=== PATIENT | female | born 1980 | race Caucasian/White ===

== ENCOUNTER 2018-11-02 11:37 | Emergency (ER) | payer SELFPAY ==
[~2018-11-02] VITALS: Ht 170.2 cm; Wt 119.5 kg
[2018-11-02 12:01] VITALS: Ht 170.2 cm; Wt 119.5 kg
[2018-11-02 13:08] LABS: BASOPHILS 0.2 % (0-2); HEMATOCRIT 50.2 % (36.0-48.0); HEMOGLOBIN 17.8 g/dL (12-16); IMMATURE GRANULOCYTES 0.3 % (0-5); LYMPHOCYTES 25.1 % (15-50); MCH 29.7 pg (26.0-34.0); MCHC 35.5 g/dL (31.0-37.0); MCV 83.8 fL (80.0-100.0); MEAN PLATELET VOLUME 8.8 fL (7.4-10.4); MONOCYTES 6.6 % (2-11); NEUTROPHILS 65.8 % (40-80); PLATELET COUNT 280 10x3/uL (130-400); RBC 5.99 10x6/uL (4.00-5.40); RDW 13.4 % (11.5-14.5); WBC 12.7 10x3/uL (4.8-10.8)
[2018-11-02 13:14] LABS: ALBUMIN 3.7 g/dL (3.4-5.0); ALKALINE PHOSPHATASE 48 U/L (46-116); ALT (SGPT) 37 U/L (10-68); BILIRUBIN - TOTAL 0.55 mg/dL (0.2-1.3); CALC OSMOLALITY 274 mosm/kg (275-300); CALCIUM 8.9 mg/dL (8.5-10.1); CARBON DIOXIDE 22.6 mmol/L (21.0-32.0); CHLORIDE - SERUM 103 mmol/L (98-107); GLUCOSE 132 mg/dL (74-106); POTASSIUM - SERUM 3.8 mmol/L (3.5-5.1); PROTEIN - SERUM 7.6 g/dL (6.4-8.2); SODIUM 137 mmol/L (136-145); UREA NITROGEN 10 mg/dL (7-18); eGFR NON AFRICAN AMERICAN 65 mL/min (90-120)
[2018-11-02 13:18] LABS: HCG URINE NEGATIVE (NEGATIVE)
[2018-11-02 13:18] LABS: AMYLASE - SERUM 25 U/L (25-115); LIPASE 57 U/L (73-393)
[2018-11-02 13:24] LABS: TROPONIN-I < 0.017 ng/mL (0.000-0.060)
[2018-11-02 13:32] LABS: APPEARANCE CLOUDY (CLEAR); BILIRUBIN NEGATIVE (NEGATIVE); COLOR YELLOW (YELLOW); GLUCOSE NEGATIVE (NEGATIVE); KETONE NEGATIVE (NEGATIVE); NITRITE POSITIVE (NEGATIVE); PROTEIN TRACE mg/dL (NEGATIVE); SPECIFIC GRAVITY 1.025 (1.005-1.020)
[2018-11-02 13:33] LABS: RED CELLS - URINE 0-5 /hpf (0-5)
[2018-11-02 13:34] LABS: BACTERIA MODERATE /hpf (NONE SEEN); MUCUS <1+ /lpf (NONE SEEN)
[2018-11-02] MEDS ORDERED: ZOFRAN8 MG PO (14:53)
[2018-11-02 15:30] VITALS: BP 154/96
[2018-11-08 19:07] LABS: CHLAMYDIA TRACHOMATIS, NAA Negative (Negative)
== END 2018-11-02 15:30 | disposition home or self-care (01) ==
LOC: D.ER 11:37
PROVIDERS: Family Medicine
DX: A59.9 Trichomoniasis, unspecified (principal); R11.2 Nausea with vomiting, unspecified; N39.0 Urinary tract infection, site not specified

== ENCOUNTER 2019-03-22 10:06 | Emergency (ER) | payer OTHER, MEDICAID ==
[~2019-03-22] VITALS: Ht 170.2 cm; Wt 120.5 kg
[~2019-03-22 10:06] MED LIST: ZOFRAN8 MG PO
[2019-03-22 10:12] VITALS: Ht 170.2 cm; Wt 120.5 kg
[2019-03-22 10:41] LABS: BASOPHILS 0.6 % (0-2); EOSINOPHILS 3.5 % (0-7); HEMATOCRIT 46.4 % (36.0-48.0); HEMOGLOBIN 15.9 g/dL (12-16); IMMATURE GRANULOCYTES 0.1 % (0-5); LYMPHOCYTES 28.3 % (15-50); MCHC 34.3 g/dL (31.0-37.0); MCV 87.5 fL (80.0-100.0); MEAN PLATELET VOLUME 8.4 fL (7.4-10.4); MONOCYTES 6.9 % (2-11); NEUTROPHILS 60.6 % (40-80); PLATELET COUNT 314 10x3/uL (130-400); RDW 13.6 % (11.5-14.5); WBC 11.3 10x3/uL (4.8-10.8)
[2019-03-22 10:56] LABS: ALBUMIN 3.7 g/dL (3.4-5.0); ALKALINE PHOSPHATASE 50 U/L (46-116); ALT (SGPT) 35 U/L (10-68); BILIRUBIN - TOTAL 0.26 mg/dL (0.2-1.3); CALC OSMOLALITY 279 mosm/kg (275-300); CALCIUM 8.8 mg/dL (8.5-10.1); CARBON DIOXIDE 27.3 mmol/L (21.0-32.0); CHLORIDE - SERUM 104 mmol/L (98-107); GLUCOSE 90 mg/dL (74-106); PROTEIN - SERUM 7.6 g/dL (6.4-8.2); SODIUM 141 mmol/L (136-145); UREA NITROGEN 11 mg/dL (7-18); eGFR NON AFRICAN AMERICAN 65 mL/min (90-120)
[2019-03-22 11:03] LABS: TROPONIN-I < 0.017 ng/mL (0.000-0.060)
[2019-03-22] MEDS ORDERED: LISINOPRIL-HCT1 EAC7 PO (11:28)
[2019-03-22] MEDS ORDERED: LISINOPRIL-HCT1 EAC4 PO (11:34)
[2019-03-22 11:45] VITALS: BP 139/95
== END 2019-05-02 08:32 | disposition home or self-care (01) ==
LOC: D.ER 10:06
PROVIDERS: Family Medicine
DX: I10 Essential (primary) hypertension (principal); Z72.0 Tobacco use

== ENCOUNTER 2019-03-29 15:04 | Emergency (ER) | payer OTHER, MEDICAID ==
[~2019-03-29] VITALS: Ht 170.2 cm; Wt 120.5 kg
[~2019-03-29 15:04] MED LIST changes: +LISINOPRIL-HCT1 EAC4 PO; +LISINOPRIL-HCT1 EAC7 PO
[2019-03-29 15:11] VITALS: Ht 170.2 cm; Wt 120.5 kg
[2019-03-29 15:42] LABS: BASOPHILS 0.6 % (0-2); EOSINOPHILS 3.8 % (0-7); HEMOGLOBIN 14.6 g/dL (12-16); IMMATURE GRANULOCYTES 0.2 % (0-5); LYMPHOCYTES 38.4 % (15-50); MCH 30.1 pg (26.0-34.0); MCHC 34.8 g/dL (31.0-37.0); MCV 86.6 fL (80.0-100.0); MEAN PLATELET VOLUME 8.6 fL (7.4-10.4); MONOCYTES 5.6 % (2-11); NEUTROPHILS 51.4 % (40-80); PLATELET COUNT 297 10x3/uL (130-400); RBC 4.85 10x6/uL (4.00-5.40); RDW 13.2 % (11.5-14.5)
[2019-03-29 16:10] LABS: ALBUMIN 3.4 g/dL (3.4-5.0); ALKALINE PHOSPHATASE 51 U/L (46-116); ALT (SGPT) 36 U/L (10-68); BILIRUBIN - TOTAL 0.23 mg/dL (0.2-1.3); CALC OSMOLALITY 278 mosm/kg (275-300); CALCIUM 8.7 mg/dL (8.5-10.1); CARBON DIOXIDE 31.2 mmol/L (21.0-32.0); CHLORIDE - SERUM 101 mmol/L (98-107); CREATININE - SERUM 0.8 mg/dL (0.6-1.3); GLUCOSE 114 mg/dL (74-106); POTASSIUM - SERUM 3.6 mmol/L (3.5-5.1); PROTEIN - SERUM 6.8 g/dL (6.4-8.2); SODIUM 139 mmol/L (136-145); UREA NITROGEN 12 mg/dL (7-18); eGFR NON AFRICAN AMERICAN 84 mL/min (90-120)
[2019-03-29 17:48] LABS: APPEARANCE CLEAR (CLEAR); BILIRUBIN NEGATIVE (NEGATIVE); COLOR YELLOW (YELLOW); GLUCOSE NEGATIVE (NEGATIVE); KETONE NEGATIVE (NEGATIVE); NITRITE NEGATIVE (NEGATIVE); PROTEIN NEGATIVE (NEGATIVE); SPECIFIC GRAVITY 1.025 (1.005-1.020); UROBILINOGEN NORMAL (NORMAL)
[2019-03-29 18:44] VITALS: BP 153/101
== END 2019-03-29 18:40 | disposition home or self-care (01) ==
LOC: D.ER 15:04
PROVIDERS: Family Medicine
DX: I10 Essential (primary) hypertension (principal); E86.0 Dehydration

== ENCOUNTER 2019-07-03 11:31 | Emergency (ER) | payer MEDICAID ==
[~2019-07-03] VITALS: Ht 170.2 cm; Wt 118.2 kg
[2019-07-03 12:02] VITALS: BP 147/96; Ht 170.2 cm; Wt 118.2 kg
[2019-07-03] MEDS ORDERED: AUGMENTIN 875-11 TAB PO (12:03)
== END 2019-07-03 14:45 | disposition left against medical advice (07) ==
LOC: D.ER 11:31
DX: N61.0 Mastitis without abscess (principal)

== ENCOUNTER 2019-11-10 05:22 | Day surgery (SDC) | payer MEDICAID ==
[~2019-11-10] VITALS: Ht 170.2 cm; Wt 120.0 kg
--- NOTE | ~2019-11-10 | OP ---
PATIENT NAME: MAYDA MANCINI MEDICAL RECORD: [id number] :76 LOCATION: D.2229 ADMISSION DATE: SURGEON: LUIS ANTONIO LO MD DATE OF OPERATION: 11/10/2019 PREOPERATIVE DIAGNOSES: 1. Recurrent left breast abscesses. 2. Morbid obesity with a BMI of 42. 3. Tobacco dependence syndrome. POSTOPERATIVE DIAGNOSES: 1. Recurrent left breast abscesses. 2. Morbid obesity with a BMI of 42. 3. Tobacco dependence syndrome. PROCEDURE: Left simple mastectomy. SURGEON: Luis Antonio Lo MD REPORT OF PROCEDURE: The patient's left chest was prepped and draped in sterile fashion. An ovoid incision was made around the nipple areolar complex. Electrocautery was used to dissect through the subcutaneous tissues. We came around the entire anterior aspect of the breast extending it superiorly towards the clavicle, medially towards the sternum, inferiorly towards the rectus musculature and laterally towards the axilla. Once we had this done, then we took the breast tissue off of the pectoral muscle. Once the pec was completely excised, it was sent off for permanent specimen. We did a careful inspection to look for any bleeding sources and any of these were treated with either ties or electrocautery. At the conclusion of the case, I did not see any evidence of any surgical bleeding. The wound bed was irrigated out with sterile water. A total of two 10 flat IVONE drains were inserted through the left lateral chest and laid over the pectoral muscle. The subcutaneous tissues were all reapproximated with interrupted 3-0 Vicryls and the skin was closed with antonella. The drains were sutured into place with 2-0 nylons. COMPLICATIONS: None. CONDITION: Stable. ANESTHESIA: General endotracheal. BLOOD LOSS: 150 mL. TRANSINT:[id number] Voice Confirmation ID: [id number] DOCUMENT ID: [id number] LUIS ANTONIO LO MD CC: [id number] DICTATION DATE: 11/10/19925 INSURANCE ADVISOR: 11/10/19 [address] [facility] [address] [place] [address]
[~2019-11-10 05:22] MED LIST changes: +AUGMENTIN 875-11 TAB PO
[2019-11-10 05:59] LABS: HEMATOCRIT 45.2 % (36.0-48.0); HEMOGLOBIN 15.3 g/dL (12-16); MCH 29.3 pg (26.0-34.0); MCHC 33.8 g/dL (31.0-37.0); MCV 86.6 fL (80.0-100.0); MEAN PLATELET VOLUME 8.5 fL (7.4-10.4); RBC 5.22 10x6/uL (4.00-5.40); RDW 13.3 % (11.5-14.5); WBC 9.2 10x3/uL (4.8-10.8)
[2019-11-10 06:13] LABS: HCG SERUM NEGATIVE (NEGATIVE)
[2019-11-10 06:20] VITALS: BP 153/102; BMI 42.7
[2019-11-10 06:34] LABS: HCG URINE NEGATIVE (NEGATIVE)
[2019-11-10 10:32] VITALS: BP 137/86
--- NOTE | 2019-11-10 10:51 | NUR ---
PT BROUGHT TO FLOOR VIA STRECHER FROM RECOVERY. PT VITALS ARE STABLE AT THIS TIME. NO S/S OF ANY PAIN OR DISTRESS. BED LOW CALL LIGHT WITHIN REACH. WILL CONTINUE TO MONITOR.
[2019-11-10 12:00] VITALS: BP 121/77
[2019-11-10 12:17] VITALS: BP 147/82
[2019-11-10 16:00] VITALS: BP 137/86
--- NOTE | 2019-11-10 18:56 | NUR ---
PT IVONE DRAIN 1-30ML IVONE DRAIN 2-30ML
[2019-11-10 20:00] VITALS: BP 148/88
[2019-11-10 23:40] VITALS: Ht 170.2 cm; Wt 120.0 kg
[2019-11-11] VITALS: BP 136/86
[2019-11-11 04:00] VITALS: BP 127/85
--- NOTE | 2019-11-11 04:45 | NUR ---
ASSISTED PT UP TO BATHROOM. EMPTIED IVONE DRAINS. PT C/O PAIN 01/21. GAVE DILAUDID 2MG PO. NO OTHER NEEDS. WILL CONTINUE TO MONITOR.
[2019-11-11 05:35] LABS: BASOPHILS 0.6 % (0-2); EOSINOPHILS 2.6 % (0-7); HEMATOCRIT 45.1 % (36.0-48.0); IMMATURE GRANULOCYTES 0.1 % (0-5); MCHC 33.3 g/dL (31.0-37.0); MCV 87.1 fL (80.0-100.0); MEAN PLATELET VOLUME 8.5 fL (7.4-10.4); MONOCYTES 6.3 % (2-11); NEUTROPHILS 68.4 % (40-80); PLATELET COUNT 262 10x3/uL (130-400); RBC 5.18 10x6/uL (4.00-5.40); RDW 13.6 % (11.5-14.5); WBC 10.3 10x3/uL (4.8-10.8)
[2019-11-11 05:45] LABS: ANION GAP 12.6 mmol/L (8-16); CALCIUM 8.3 mg/dL (8.5-10.1); CARBON DIOXIDE 23.2 mmol/L (21.0-32.0); CREATININE - SERUM 0.9 mg/dL (0.6-1.3); POTASSIUM - SERUM 3.8 mmol/L (3.5-5.1)
[2019-11-11 08:37] VITALS: BP 144/91
[2019-11-11] MEDS ORDERED: DILAUDID2 MG PO (13:19)
--- NOTE | 2019-11-11 14:52 | NUR ---
PATIENT RECIEVED DC INSTRUCTIONS. VERBALIZED UNDERSTANDING. NO QUESTIONS AT THIS TIME. IV REMOVED CATH TIP INTACT. DRAIN CARE AND EMPTYING DEMOSTRATED AND TAUGHT TO PATIENT AND . VERBALIZED UNDERSTANDING. CUPS FOR MEASURING SENT HOME WITH PATIENT. EXPLAINED TO EMPTY AND RECORD DRAINAGE BID. NO QUESTIONS AT THIS TIME. WAITING FOR WC FOR DC. CALL LIGHT WITHIN REACH.
== END 2019-11-11 15:00 | disposition home or self-care (01) ==
LOC: D.OPS 05:22 → D.MS 10:31 → D.OPS 11-11 15:00
PROVIDERS: Anesthesiology; ATTEND Surgery
DX: N61.1 Abscess of the breast and nipple (principal); F17.200 Nicotine dependence, unspecified, uncomplicated; E66.01 Morbid (severe) obesity due to excess calories; Z68.41 Body mass index [BMI] 40.0-44.9, adult

== ENCOUNTER 2020-02-16 08:00 | Day surgery (SDC) | payer MEDICAID ==
[~2020-02-16] VITALS: Ht 170.2 cm; Wt 126.6 kg
--- NOTE | ~2020-02-16 | OP ---
PATIENT NAME: MAYDA MANCINI MEDICAL RECORD: [id number] :76 LOCATION:D.OPS ADMISSION DATE: SURGEON: LUIS ANTONIO LO MD DATE OF OPERATION: 02/16/2020 PREOPERATIVE DIAGNOSES: 1. Gallstones. 2. Morbid obesity. 3. Tobacco dependence syndrome. POSTOPERATIVE DIAGNOSES: 1. Gallstones. 2. Morbid obesity. 3. Tobacco dependence syndrome. PROCEDURE: Laparoscopic cholecystectomy. SURGEON: Luis Antonio Lo MD REPORT OF PROCEDURE: The patient's abdomen was prepped and draped in sterile fashion. A cutdown was made on the superior aspect of the umbilicus, 0 Vicryls were placed in the fascia bilaterally and the fascia was incised with 15-blade. I then bluntly entered the peritoneal cavity and placed a 12-mm Rodrigo port. Under direct visualization, a 5 mm trocar was placed in the epigastrium and 2 more 5-mm trocars were placed in the right subcostal region. The gallbladder was grasped and elevated and is noted to be acutely inflamed with inflammatory fatty tissue present around it. The patient had some large gallstones at its infundibulum. We were able to dissect out the cystic artery and cystic duct and these were clipped proximally and distally and ligated in standard fashion. The gallbladder was then taken off the liver bed using electrocautery and placed into the right upper quadrant. Any bleeding from the liver bed was then treated with electrocautery. We then irrigated out the right upper quadrant and assured there was no sign of any bleeding or bile leakage. At this point, the gallbladder was placed into an Endo Catch bag and brought out through the umbilicus. The ports and insufflation were then removed. The umbilical fascia was then closed with interrupted 0 Vicryls times 3. We irrigated out the wounds with normal saline and then infused 10 mL of 0.25% Marcaine with epinephrine. The skin incisions were closed with subcutaneous 5-0 Monocryl and dressed appropriately. COMPLICATIONS: None. CONDITION: Stable. ANESTHESIA: General endotracheal and local. BLOOD LOSS: Minimal. TRANSINT:[id number] Voice Confirmation ID: [id number] DOCUMENT ID: [id number] OPERATIVE REPORT [id number] RICMAYDA AMEZQUITA LUIS ANTONIO COOL MD CC: VALENTIN BAUTISTA [id number] DICTATION DATE: 02/16/20 1316 SYSTEMS ENGINEERING MANAGER: 02/16/20 2[address] [facility] [place] 02/16/20 [facility] [address] [place] [address]
[~2020-02-16 08:00] MED LIST changes: +DILAUDID2 MG PO
[2020-02-16 08:31] LABS: HEMATOCRIT 46.2 % (36.0-48.0); HEMOGLOBIN 15.3 g/dL (12-16); LYMPHOCYTES 29.8 % (15-50); MCH 28.4 pg (26.0-34.0); MCHC 33.1 g/dL (31.0-37.0); MCV 85.9 fL (80.0-100.0); MEAN PLATELET VOLUME 7.8 fL (7.4-10.4); NEUTROPHILS 63.3 % (40-80); RBC 5.38 10x6/uL (4.00-5.40); RDW 12.9 % (11.5-14.5); WBC 9.3 10x3/uL (4.8-10.8)
[2020-02-16 08:39] LABS: ANION GAP 11.4 mmol/L (8-16); CALCIUM 8.8 mg/dL (8.5-10.1); CARBON DIOXIDE 25.9 mmol/L (21.0-32.0); CREATININE - SERUM 0.9 mg/dL (0.6-1.3); POTASSIUM - SERUM 4.3 mmol/L (3.5-5.1)
[2020-02-16 08:48] LABS: PLATELET COUNT 333 10x3/uL (130-400)
[2020-02-16 08:54] VITALS: BP 157/93; Ht 170.2 cm; Wt 126.6 kg
[2020-02-16 09:47] LABS: HCG SERUM NEGATIVE (NEGATIVE)
[2020-02-16] MEDS ORDERED: HYDROCODON-ACE1 EA10 PO (13:11)
--- NOTE | 2020-02-16 16:23 | NUR ---
1600 IV REMOVED 1615 PT D/C HOME
== END 2020-02-16 16:15 | disposition home or self-care (01) ==
LOC: D.OPS 08:00 → D.PAN 10:30 → D.OPS 16:15
PROVIDERS: Anesthesiology; ATTEND Surgery
DX: K80.80 Other cholelithiasis without obstruction (principal); E66.01 Morbid (severe) obesity due to excess calories; F17.200 Nicotine dependence, unspecified, uncomplicated